=== PATIENT | female | born 1985 | race Caucasian/White ===

== ENCOUNTER 2017-06-30 13:18 | Emergency (ER) | payer OTHER ==
[~2017-06-30] VITALS: Ht 162.6 cm; Wt 47.6 kg
[2017-06-30 13:26] VITALS: BP 137/90
== END 2017-06-30 14:07 | disposition home or self-care (01) ==
LOC: ER 13:24
DX: F11.10 Opioid abuse, uncomplicated (principal); F14.10 Cocaine abuse, uncomplicated
CPT/HCPCS: 99281; A4606; Z7610; Z7502